=== PATIENT | male | born 2000 | race Caucasian/White ===

== ENCOUNTER 2020-09-17 20:19 | Emergency (ER) | payer BC ==
--- OUTSIDE RECORDS SUMMARY | 2020-09-17 20:21 | XMS REPORT | Continuity of Care Document ---
:2000 Author Organization [facility] t Address [address] [place] [address] Care Team Providers Name Role Phone Asked, Pcp Primary Care Physician Unavailable Truman Obrien MD Attending Clinician Payers Payer Name Policy Type Policy Effective Date Expiration Date Sour ce Number BCBSBCBS CHOICE [id number] 2018 [place] PPO/FEDERAL 00:00:00 Islam EMPL [id number] 2018-Presen tPPO Problems This patient has no known problems. Allergies, Adverse Reactions, Alerts This patient has no known allergies or adverse reactions. Family History Family Member Diagnosis Comments Start Date Stop Date Source Natural father Heart disease [place] [facility] Social History Social Habit Start Date Stop Date Quantity Comments Source Sex Assigned At M [facility] ethodist Tobacco use and 2020-06-29 2020-06-[address] [facility] ethodist exposure 00:00:00 00:00:00 Alcohol intake 2020-06-29 2020-06-29 Ex-drinker [facility] thodist 00:00:00 00:00:00 (finding) Smoking Status Start Date Stop Date Source Never smoker [facility] Medications Ordered Filled Start Stop Current Ordering Indication Dosage Frequency Signature Comments Components Source Medication Medication Date Date Medication? Clinician (SIG) Name Name meloxicam 2019-09- No Chondromala 15mg QD Take 1 [place] (Mobic) 15 12-08 david of tablet (15 Method[facility] mg tablet 00:00: 23:59 right mg total) s t 00 :00 patella by mouth daily for 60 days. To start after the Medrol Dose [place] methylPREDN 2019-09- No Chondromala 4mg Take 1 [place] ISolone 0-09 10-14 david of tablet (4 Meth izaiah (MEDROL 00:00: 23:59 right mg total) st DOSEPAK) 4 00 :00 patella by mouth mg tablet See Admin Instructio ns for 5 days. Use as directed by package instructio ns Vital Signs Vital Name Observation Time Observation Value Comments Source Body height 2020-06-29 09:02:00 177.8 cm Rome Lopez Body weight 2020-06-29 09:02:00 86.183 kg Rome Lopez BMI 2020-06-29 09:02:00 27.26 kg/m2 Rome Lopez Procedures Procedure Date / Time Performed Performing Clinician Sourc e XR KNEE 3 VW BILATERAL 2020-06-29 09:10:49 Oumar Obrien Plan of Care Planned Activity Planned Date Details Comments Source Future Scheduled 2020-04-21 INFLUENZA VACCINE Dmitry moran Islam Test 00:00:00 [code = INFLUENZA VACCINE] Future Scheduled 2014 COVID-19 VACCINE [place] Islam Test 00:00:00 (#1) [code = COVID-19 VACCINE (#1)] Encounters Start End Encounter Admission Attending Care Care Encounter Source Date/Time Date/Time Type Type Clinicians Facility Department ID 2020-06-29 2020-06-29 Outpatient [facility] [id number] [address] [place] 00:00:00 00:00:00 OUMAR [address] 2020-06-29 2020-06-29 Outpatient [facility] [id number] [address] [place] 00:00:00 00:00:00 [address] [facility] Results This patient has no known results.
--- OUTSIDE RECORDS SUMMARY | 2020-09-17 20:21 | XMS REPORT | Clinical Summary ---
:2000 Author Organization [facility] Address [address] [place] [address] Care Team Providers Name Role Phone Asked, Pcp Primary Care Provider Unavailable Allergies No Known Active Allergies Medications Medication Sig Dispensed Refills Start Date End Date Status meloxicam (Mobic) 15 mg Take 1 tablet (15 30 tablet 0 06/29/20 20 tabletIndications: mg total) by 0 Chondromalacia of left mouth daily for patella, Chondromalacia 60 days. To start of right patella after the Medrol Dose [place] methylPREDNISolone Take 1 tablet (4 21 tablet 0 06/29/2020 (MEDROL DOSEPAK) 4 mg mg total) by 0 tabletIndications: mouth See Admin Chondromalacia of left Instructions for patella, Chondromalacia 5 days. Use as of right patella directed by package instructions Active Problems No known active problems Encounters Date Type Specialty Care Team Description 06/29/2020 Office Visit Orthopedic Surgery Oumar Obrien Chon dromalacia of left patella (Primary Dx); Acute pain of b oth knees; Chondromalacia of right patella 06/29/2020 Travel 06/25/2020 Travel after 09/17/2019 Family History Medical History Relation Name Comments Heart disease Father Dad Relation Name Status Comments Father Dad Alive Mother Alive Social History Tobacco Use Types Packs/Day Years Used Date Never Smoker 0 0 Smokeless Tobacco: Never Used Alcohol Use Drinks/Week oz/Week Comments Not Currently 0 Glasses of wine 0.0 0 Cans of beer 0 Shots of liquor 0 Standard drinks or equivalent Sex Assigned at Date Recorded Male 06/28/2020 5:43 PM CDT Last Filed Vital Signs Vital Sign Reading Time Taken Comments Blood Pressure - - Pulse - - Temperature - - Respiratory Rate - - Oxygen Saturation - - Inhaled Oxygen Concentration - - Weight 86.2 kg (190 lb) 06/29/2020 9:02 AM CDT Height 177.8 cm (5' 10") 06/29/2020 9:02 AM CDT Body Mass Index 27.26 06/29/2020 9:02 AM CDT Plan of Treatment Health Maintenance Due Date Last Done Comments COVID-19 VACCINE (#1) 2014 INFLUENZA VACCINE 04/21/2020 Procedures Procedure Name Priority Date/Time Associated Diagnosis Comme nts XR KNEE 3 VW Routine 06/29/2020 9:10 AM Acute pain of both Re sults for this BILATERAL CDT knees procedure are i n the results section. after 09/17/2019 Results XR Knee 3 Vw Bilateral (06/29/2020 9:10 AM CDT) Specimen Narrative Performed At This result has an attachment that is no t available. 3 views of bilateral knees reveal no acute fracture or dislocation. [facility] Overall alignment and joint spaces are well-maintained . 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
[2020-09-18 00:39] LABS: Basophils % 0.5 % (0-1.3); Hematocrit 42.4 % (39.6-49.0); Lymphocytes % 49.9 % (15.3-44.8); MPV 9.2 fL (7.6-11.3); RBC Red Blood Cell Count 4.77 M/uL (4.33-5.43)
[2020-09-18 00:42] LABS: Protime INR 0.93
[2020-09-18 00:48] LABS: Barbiturates NEGATIVE (NEGATIVE); Benzodiazepines NEGATIVE (NEGATIVE); Cocaine NEGATIVE (NEGATIVE); METHAMPHETAM NEGATIVE (NEGATIVE); Methadone NEGATIVE (NEGATIVE); Opiates NEGATIVE (NEGATIVE); Phencyclidine NEGATIVE (NEGATIVE); THC Cannibis NEGATIVE (NEGATIVE)
[2020-09-18 01:03] LABS: ALT/SGPT 38 U/L (12-78); AST/SGOT 22 U/L (15-37); Albumin 4.4 g/dL (3.4-5.0); Alkaline Phosphatase 87 U/L (45-117); BUN Blood Urea Nitrogen 13 mg/dL (7-18); Bicarbonate 30 mmol/L (21-32); Bilirubin Direct 0.2 mg/dL (0-0.2); Bilirubin Total 0.6 mg/dL (0.2-1.0); Glucose Level 90 mg/dL (74-106); Magnesium 2.6 mg/dL (1.8-2.4); Potassium 3.7 mmol/L (3.5-5.1); Protein, Total 7.6 g/dL (6.4-8.2); Sodium Level 142 mmol/L (136-145); Troponin (Emerg Dept Use Only) < 0.02 ng/mL (0.0-0.045)
[2020-09-18 01:10] LABS: Urine Blood NEGATIVE (NEG); Urine Glucose NEGATIVE (NEG); Urine Protein NEGATIVE (NEG); Urine pH 6.5 (5.0-7.0)
--- NOTE | 2020-09-18 01:10 | EDPHYS ---
Physician Documentation [facility] Name: Austin Campbell Age: 20 yrs Sex: Male : 2000 Arrival Date: 09/17/2020 Time: 20:20 Bed 4 Private MD: ED Physician Saleem Bhatia HPI: 09/17 23:55 This 20 yrs old Male presents to ER via Ambulatory with complaints of Chest cp Pain. 23:55 The patient or guardian reports chest pain that is located primarily in the anterior cp chest wall, left. 23:55 The pain radiates to the left arm. cp 23:55 Associated signs and symptoms: Pertinent positives: palpitations, shortness of breath, cp Pertinent negatives: abdominal pain, diaphoresis, dizziness, lower extremity pain, lower extremity swelling, syncope. The chest pain is described as burning. Duration: The patient or guardian reports a single episode, markedly improved. Modifying factors: the symptoms are aggravated by nothing. Historical: - Allergies: 20:32 No Known Allergies; ll1 - PMHx: 20:32 Hypertension; ll1 - PSHx: 20:32 None; ll1 - Immunization history:: Flu vaccine is up to date. - Social history:: Smoking status: Patient denies any tobacco usage or history of. ROS: 09/18 00:00 Constitutional: Negative for body aches, chills, fever, poor PO intake. cp 00:00 Eyes: Negative for injury, pain, redness, and discharge. cp 00:00 ENT: Negative for ear pain, sore throat, difficulty swallowing, difficulty handling secretions. 00:00 Cardiovascular: Positive for chest pain, palpitations, Negative for edema. 00:00 Respiratory: Positive for shortness of breath, Negative for cough, wheezing. 00:00 Abdomen/GI: Negative for abdominal pain, nausea, vomiting, and diarrhea. 00:00 Back: Negative for radiated pain. 00:00 Neuro: Negative for altered mental status, headache, weakness. 00:00 All other systems are negative. Exam: 09/17 20:40 ECG was reviewed by the Attending Physician. cp 09/18 00:10 Constitutional: The patient appears in no acute distress, alert, awake, comfortable, cp non-diaphoretic, non-toxic, well developed, well nourished. 00:10 Head/Face: Normocephalic, atraumatic. cp 00:10 Eyes: Periorbital structures: appear normal, Conjunctiva: normal, no exudate, no injection, Sclera: no appreciated abnormality, Lids and lashes: appear normal, bilaterally. 00:10 ENT: External ear(s): are unremarkable, Nose: is normal, Mouth: Lips: moist, Oral mucosa: moist, Posterior pharynx: is normal, airway is patent, no erythema, no exudate. 00:10 Chest/axilla: Inspection: normal, Palpation: is normal, no crepitus, no tenderness. 00:10 Cardiovascular: Rate: normal, Rhythm: regular, Edema: is not appreciated, JVD: is not appreciated. 00:10 Respiratory: the patient does not display signs of respiratory distress, Respirations: normal, no use of accessory muscles, no retractions, labored breathing, is not present, Breath sounds: are clear throughout, no decreased breath sounds, no stridor, no wheezing. 00:10 Abdomen/GI: Inspection: abdomen appears normal, Palpation: abdomen is soft and non-tender, in all quadrants. 00:10 Back: pain, is absent, ROM is normal. 00:10 Skin: no rash present. 00:10 Neuro: Orientation: to person, place \T\ time. Mentation: is normal, Cerebellar function: is grossly normal, Motor: moves all fours, strength is normal, Sensation: is normal. Vital Signs: 09/17 20:28 BP 174 / 98; Pulse 67; Resp 17; Temp 98.6; Pulse Ox 100% on R/A; Weight 86.18 kg; ll1 Height 5 ft. 10 in. (177.80 cm); Pain 0/10; 23:56 BP 131 / 85; Pulse 75; Resp 19; Temp 98; Pulse Ox 99% ; rr5 09/18 01:00 BP 149 / 87; Pulse 70; Resp 19; Pulse Ox 98% ; rr5 01:33 BP 136 / 80; Pulse 70; Resp 16; Pulse Ox 98% ; rr5 09/17 20:28 Body Mass Index 27.26 (86.18 kg, 177.80 cm) ll1 MDM: 09/17 23:52 Patient medically screened. [facility] 09/18 01:05 Test interpretation: by ED physician or midlevel provider: ECG, chest xray negative for cp infiltrates. 01:08 Data reviewed: vital signs, nurses notes, lab test result(s), EKG, radiologic studies, cp plain films, and as a result, I will discharge patient. 01:08 Counseling: I had a detailed discussion with the patient and/or guardian regarding: the cp historical points, exam findings, and any diagnostic results supporting the discharge/admit diagnosis, lab results, radiology results, the need for outpatient follow up, a upscale security officer, to return to the emergency department if symptoms worsen or persist or if there are any questions or concerns that arise at home. Special discussion: Based on the patient's history, exam, and Dx evaluation, there is no indication for emergent intervention or inpatient Tx. It is understood by the patient/guardian that if the Sx's persist or worsen they need to return immediately for re-evaluation. 09/18 00:06 Order name: Basic Metabolic Panel; Complete Time: 01:06 09/18 01:06 Interpretation: Normal except: CL 108; CRE 1.33; GFR 67. 09/18 00:06 Order name: CBC with Diff; Complete Time: 01:03 09/18 01:03 Interpretation: Normal except: SARAH% 39.9; LYM% 49.9. 09/18 00:06 Order name: LFT's; Complete Time: 01:06 09/18 00:06 Order name: Magnesium; Complete Time: 01:06 09/18 01:06 Interpretation: Abnormal: MG 2.6. 09/18 00:06 Order name: PT-INR; Complete Time: 01:03 09/18 00:06 Order name: Troponin (emerg Dept Use Only); Complete Time: 01:06 09/18 01:07 Interpretation: TROPED < 0.02; Reviewed. 09/18 00:06 Order name: XRAY Chest (1 view) 09/18 00:06 Order name: EKG; Complete Time: 00:07 09/18 00:06 Order name: Cardiac monitoring; Complete Time: 00:08 09/18 00:06 Order name: EKG - Nurse/Tech; Complete Time: 00:08 09/18 00:06 Order name: IV Saline Lock; Complete Time: 01:01 09/18 00:06 Order name: UDS; Complete Time: 01:03 09/18 01:03 Interpretation: Reviewed. cp 09/18 00:06 Order name: D-Dimer; Complete Time: 01:03 cp 09/18 00:32 Order name: Urine Dipstick--Ancillary (enter results) sp 09/18 00:06 Order name: Labs collected and sent; Complete Time: 01:01 cp 09/18 00:06 Order name: O2 Per Protocol; Complete Time: 00:08 cp 09/18 00:06 Order name: O2 Sat Monitoring; Complete Time: 00:08 cp EC/28 20:40 Rate is 59 beats/min. Rhythm is regular. AR interval is normal. QRS interval is normal. cp QT interval is normal. T waves are Inverted in lead aVR. Interpreted by me. Reviewed by me. Administered Medications: No medications were administered Disposition: 09/18 07:25 Co-signature as Attending Physician, Saleem Bhatia MD I agree with the assessment and [facility] plan of care. Disposition: 09/18/20 01:09 Discharged to Home. Impression: Other chest pain, Palpitations. - Condition is Stable. - Discharge Instructions: Nonspecific Chest Pain, Palpitations. - Medication Reconciliation Form, Thank You Letter, Antibiotic Education, Prescription Opioid Use, Work release form form. - Follow up: Private Physician; When: 1 - 2 days; Reason: Recheck today's complaints. - Problem is new. - Symptoms have improved. Signatures: Dispatcher [employer] Saleem Le MD MD cha Page, Corey, PA PA cp Jaya Carrera RN RN rr5 Bridgette Puri RN RN ll1 Corrections: (The following items were deleted from the chart) 01:10 01:09 09/18/2020 01:09 Discharged to Home. Impression: Other chest pain. Condition is cp Stable. Forms are Medication Reconciliation Form, Thank You Letter, Antibiotic Education, Prescription Opioid Use. Follow up: Private Physician; When: 1 - 2 days; Reason: Recheck today's complaints. Problem is new. Symptoms have improved. cp 01:36 01:10 09/18/2020 01:09 Discharged to Home. Impression: Other chest pain; Palpitations. rr5 Condition is Stable. Discharge Instructions: Nonspecific Chest Pain, Palpitations. Forms are Medication Reconciliation Form, Thank You Letter, Antibiotic Education, Prescription Opioid Use. Follow up: Private Physician; When: 1 - 2 days; Reason: Recheck today's complaints. Problem is new. Symptoms have improved. cp
--- NOTE | 2020-09-18 01:10 | ER ---
Nurse's Notes [facility] Name: Austin Campbell Age: 20 yrs Sex: Male : 2000 Arrival Date: 09/17/2020 Time: 20:20 Bed 4 Private MD: Diagnosis: Other chest pain;Palpitations Presentation: 09/17 20:28 Chief complaint: Patient states: Reports palpitations for 1 day. Had 1 episode of SOB, ll1 so he came in. Coronavirus screen: Client denies travel out of the [place] in the last 14 days. At this time, the client does not indicate any symptoms associated with coronavirus-19. Ebola Screen: Patient denies travel to an Ebola-affected area in the 21 days before illness onset. Initial Sepsis Screen: Does the patient meet any 2 criteria? No. Patient's initial sepsis screen is negative. Does the patient have a suspected source of infection? No. Patient's initial sepsis screen is negative. Risk Assessment: Do you want to hurt yourself or someone else? Patient reports no desire to harm self or others. Onset of symptoms was September 17, 2020. 20:28 Method Of Arrival: Ambulatory ll1 20:28 Acuity: ART 3 ll1 Historical: - Allergies: 20:32 No Known Allergies; ll1 - PMHx: 20:32 Hypertension; ll1 - PSHx: 20:32 None; ll1 - Immunization history:: Flu vaccine is up to date. - Social history:: Smoking status: Patient denies any tobacco usage or history of. Screenin/29 00:00 Abuse screen: Denies threats or abuse. Denies injuries from another. Nutritional rr5 screening: No deficits noted. Tuberculosis screening: No symptoms or risk factors identified. Fall Risk Secondary diagnosis (15 points) Total Quinn Fall Scale indicates No Risk (0-24 pts). Assessment: 00:00 General: Appears in no apparent distress. comfortable, Behavior is calm, cooperative, rr5 appropriate for age. 00:00 Pain: Complains of pain in chest Pain Quality of pain is described as aching, Pain rr5 began gradually, Is intermittent. Neuro: Level of Consciousness is awake, alert, obeys commands, Oriented to person, place, time. Cardiovascular: Reports palpitations, Capillary refill < 3 seconds Patient's skin is warm and dry. Respiratory: Airway is patent Respiratory effort is even, unlabored, Respiratory pattern is regular, symmetrical. GI: No signs and/or symptoms were reported involving the gastrointestinal system. : No signs and/or symptoms were reported regarding the genitourinary system. EENT: No signs and/or symptoms were reported regarding the EENT system. Derm: Skin is intact, is healthy with good turgor, Skin temperature is warm. Musculoskeletal: Circulation, motion, and sensation intact. Capillary refill < 3 seconds. 01:00 Reassessment: Patient appears in no apparent distress at this time. Patient is alert, rr5 oriented x 3, equal unlabored respirations, skin warm/dry/pink. 01:32 Reassessment: Patient appears in no apparent distress at this time. Patient is alert, rr5 oriented x 3, equal unlabored respirations, skin warm/dry/pink. discharge instruction given and explained without complaints made. Vital Signs: 09/17 20:28 BP 174 / 98; Pulse 67; Resp 17; Temp 98.6; Pulse Ox 100% on R/A; Weight 86.18 kg; ll1 Height 5 ft. 10 in. (177.80 cm); Pain 0/10; 23:56 BP 131 / 85; Pulse 75; Resp 19; Temp 98; Pulse Ox 99% ; rr5 09/18 01:00 BP 149 / 87; Pulse 70; Resp 19; Pulse Ox 98% ; rr5 01:33 BP 136 / 80; Pulse 70; Resp 16; Pulse Ox 98% ; rr5 09/17 20:28 Body Mass Index 27.26 (86.18 kg, 177.80 cm) ll1 ED Course: 09/17 20:20 Patient arrived in ED. cl3 20:31 Triage completed. ll1 20:32 Arm band placed on. ll1 20:38 EKG completed in triage. Results shown to MD. ll1 23:43 Jaya Carrera, AJAY is Primary Nurse. rr5 23:44 Saleem Carney PA is PHCP. cp 23:44 Saleem Bhatia MD is Attending Physician. cp 09/18 00:00 Patient has correct armband on for positive identification. Bed in low position. Call rr5 light in reach. equipment monitor phototypesetting on. Pulse ox on. NIBP on. 00:00 No provider procedures requiring assistance completed. Patient maintains SpO2 rr5 saturation greater than 95% on room air. 00:15 Urine collected: clean catch specimen, clear. rr5 00:24 Inserted saline lock: 20 gauge in right forearm, using aseptic technique. Blood rr5 collected. 00:40 XRAY Chest (1 view) In Process Unspecified. EDMS 01:36 IV discontinued, intact, bleeding controlled, No redness/swelling at site. Pressure rr5 dressing applied. Administered Medications: No medications were administered Outcome: 01:09 Discharge ordered by . cp 01:36 Discharged to home ambulatory, with family. rr5 01:36 Condition: stable 01:36 Discharge instructions given to patient, Instructed on discharge instructions, follow up and referral plans. Demonstrated understanding of instructions, follow-up care. 01:36 Patient left the ED. rr5 Signatures: Dispatcher [employer] EDMS Saleem Carney PA PA cp Roque, Raymond RN RN rr5 Hazel Puri cl3 Bridgette Puri RN RN ll1 Corrections: (The following items were deleted from the chart) 01:36 00:00 IV discontinued, intact, bleeding controlled, No redness/swelling at site. rr5 Pressure dressing applied, rr5
[2020-09-18 01:57] VITALS: TEMP 98
[2020-09-18 01:58] VITALS: O2SAT 98
[2020-09-18 02:00] VITALS: BP 136/80
--- NOTE | 2020-09-18 08:58 | RAD REPORT ---
EXAM DESCRIPTION: RAD - Chest Single View - 09/18/2020 12:40 am CLINICAL HISTORY: PALPITATIONS COMPARISON: None TECHNIQUE: AP portable chest image was obtained 09/18/2020 12:40 am . FINDINGS: Lungs are clear. Heart and vasculature are normal. No measurable pleural effusion and no p neumothorax. No acute bony abnormality seen. No acute aortic findings suspected. IMPRESSION: No acute cardiopulmonary process.
--- NOTE | 2020-09-18 16:07 | EKG ---
Test Date: 2020-09-17 Test Time: 20:34:58 Talent Acquisition Operations Manager: MILLIE MEASUREMENT RESULTS: Intervals: Rate: 59 AK: 152 QRSD: 90 QT: 390 QTc: 386 [place]: P: 66 AK: 152 QRS: 68 T: 33 INTERPRETIVE STATEMENTS: Sinus bradycardia with sinus arrhythmia Otherwise normal ECG No previous ECG available for comparison Electronically Signed On 09-18-20 16:05:31 ETHANOL QUALITY LEADER by Malvin Bass
== END 2020-09-18 01:36 | disposition home or self-care (01) ==
LOC: ER 20:19
DX: R00.2 Palpitations (principal); I10 Essential (primary) hypertension
CPT/HCPCS: 36415; 71045; 80048; 80076; 80307; 81003; 83735; 84484; 85025; 85379; 85610; 93005; 99285

== ENCOUNTER 2022-02-15 23:20 | Emergency (ER) | payer BC ==
--- OUTSIDE RECORDS SUMMARY | 2022-02-15 23:22 | XMS REPORT | Continuity of Care Document ---
:2000 Author Organization [facility] Address [address] [place] [address] Dr. Conn [address] [place] [id number] Care Team Providers Name Role Phone MARK Attending Clinician Unavailable Gaudencio Lopez Attending Clinician [phone] WANDA Attending Clinician Unavailable CAESAR Attending Clinician Unavailable MARK Admitting Clinician Unavailable Payers Payer Name Policy Type Policy Number Effective Date Expiration Date S z[id number] 2018 00:00:00 [place] Problems This patient has no known problems. Allergies, Adverse Reactions, Alerts This patient has no known allergies or adverse reactions. Medications This patient has no known medications. Procedures This patient has no known procedures. Encounters Start End Encounter Admission Attending Care Care Encounter Source Date/Time Date/Time Type Type Clinicians Facility Department ID 2021-09-11 2021-09-11 Outpatient [facility] [id number] [place] 05:53:00 05:53:00 [facility] 2021-06-13 2021-06-13 Outpatient [facility] [id number] [place] 01:41:00 01:41:00 [facility] 2021-05-09 2021-05-09 Outpatient [facility] [id number] [place] 01:32:00 01:32:00 [facility] 2021-04-19 2021-04-19 Outpatient [facility] [id number] [place] 09:10:00 09:10:00 [facility]30 [facility] 2021-04-18 2021-04-18 Outpatient [facility] [id number] [place] 10:32:00 10:32:00 [facility] 2021-04-18 2021-04-18 Outpatient John [facility] [id number] 00:00:00 00:00:00 [place] [id number] Gaudencio [id number] 2020-12-20 2020-12-20 Outpatient [facility] [id number] [place] 01:03:00 01:03:00 [facility] 2020-12-07 2020-12-07 Outpatient DARLIN MUÑOZ [facility] [id number] [place] 00:00:00 00:00:[address] 2020-12-07 2020-12-07 Outpatient DARLIN MUÑOZ [facility] [id number] [place] 00:00:00 00:00:[address] 2020-11-15 2020-11-15 Outpatient [facility] [id number] [place] 01:01:00 01:01:00 [facility] 2020-10-25 2020-10-25 Outpatient [facility] [id number] [place] 12:07:00 12:07:00 [facility] 2020-10-22 2020-10-22 Outpatient [facility] [id number] [place] 11:53:00 11:53:00 [facility] 2020-10-22 2020-10-22 Outpatient John [facility] [id number] 00:00:00 00:00:00 [place] [id number] Gaudencio [id number] 2020-10-22 2020-10-22 Outpatient John [facility] [id number] 00:00:00 00:00:00 [place] [id number] Gaudencio [id number] 2020-10-18 2020-10-18 Outpatient [facility] [id number] [place] 12:33:00 12:33:00 [facility] 2020-10-18 2020-10-18 Outpatient John, [facility] [id number] 00:00:00 00:00:00 [place] [id number] Gaudencio [id number] 2020-09-30 2020-09-30 Outpatient [facility] [id number] [place] 01:02:00 01:02:00 [facility] 2020-09-20 2020-09-20 Outpatient [facility] [id number] [place] 12:53:00 12:53:00 104 [facility] 2020-09-20 2020-09-20 Outpatient [facility] [id number] [place] 12:53:00 12:53:00 231 [facility] 2020-09-18 2020-09-18 Outpatient [facility] [id number] [place] 04:31:00 04:31:00 229 [facility] 2020-09-17 2020-09-17 Outpatient [facility] [id number] [place] 06:16:00 06:16:00 228 [facility] 2020-09-11 2020-09-11 Outpatient [facility] [id number] [place] 03:52:00 03:52:00 [facility] 2020-09-05 2020-09-05 Outpatient [facility] [id number] [place] 02:01:00 02:01:00 [facility] 2020-06-29 2020-06-29 Outpatient CAESAR [facility] [id number] [address] [place] [address] 00:00:00 00:00:00 VERONIKA [id number] [facility] 2020-06-29 2020-06-29 Outpatient CAESAR [facility] [id number] [place] 00:00:00 00:00:00 VERONIKA [facility] Results This patient has no known results.
[2022-02-15] MEDS ORDERED: NA CHLORIDE 0.9% 1,000 ML ONE (23:58)
[2022-02-16 00:05] LABS: Absolute Lymphocytes (CBC) 1.4 K/uL (0.7-4.9); Hematocrit 43.2 % (39.6-49.0); Lymphocytes % 15.7 % (15.3-44.8); MPV 8.8 fL (7.6-11.3); RBC Red Blood Cell Count 4.93 M/uL (4.33-5.43)
[2022-02-16 00:22] LABS: Potassium 3.5 mmol/L (3.5-5.1)
--- NOTE | 2022-02-16 01:56 | ER ---
Nurse's Notes [facility] Name: Austin Campbell Age: 21 yrs Sex: Male : 2000 Arrival Date: 02/15/2022 Time: 23:24 Bed 6 Private MD: Diagnosis: Syncope Presentation: 02/15 23:30 Chief complaint: Patient states: I started having vertigo symptoms on Thursday. Tonight I eric was at the table and put my head down on the table, I sat up and they said I passed out and hit my head on the concrete floor. Coronavirus screen: At this time, the client does not indicate any symptoms associated with coronavirus-19. Ebola Screen: No symptoms or risks identified at this time. Initial Sepsis Screen: Does the patient meet any 2 criteria? No. Patient's initial sepsis screen is negative. Does the patient have a suspected source of infection? No. Patient's initial sepsis screen is negative. Risk Assessment: Do you want to hurt yourself or someone else? Patient reports no desire to harm self or others. Onset of symptoms was February 15, 2022. Transition of care: patient was not received from another setting of care. 23:30 Method Of Arrival: Ambulatory 4 23:30 Acuity: ART 3 [facility] 23:30 Care prior to arrival: None. 4 23:30 Mechanism of Injury: Fall out of chair. Trauma event details: Injury occurred in the [address] Trauma Activation: Alert Physician: ED Physician; Name: Kennedy; Notified At: 23:40; Arrived At: 23:40 Physician: General Surgeon; Name: ; Notified At: 23:40; Arrived At: Physician: Radiology; Name: ; Notified At: 23:40; Arrived At: Physician: Respiratory; Name: ; Notified At: 23:40; Arrived At: Physician: Lab; Name: ; Notified At: 23:40; Arrived At: Historical: - Allergies: 23:30 NICOTINE; jb4 - Home Meds: 23:30 amlodipine oral [Active]; jb4 - PMHx: 23:30 Hypertension; jb4 - PSHx: 23:30 None; jb4 - Immunization history:: Adult Immunizations up to date. - Social history:: Smoking status: Patient denies any tobacco usage or history of. Patient uses alcohol, occasionally. - Immunization history: Last tetanus immunization: unknown. - Family history:: not pertinent. - Hospitalizations: : No recent hospitalization is reported. Screenin:30 Abuse screen: Denies threats or abuse. Nutritional screening: No deficits noted. jb4 Tuberculosis screening: No symptoms or risk factors identified. 02/16 02:00 Fall Risk None identified. jb4 Primary Survey: 02/15 23:30 NO uncontrolled hemorrhage observed. A: The client is awake and alert. The airway is jb4 patent. Breathing/Chest: Spontaneous respiratory effort, equal unlabored respirations, breath sounds clear bilaterally, regular pattern, symmetrical chest rise and fall. Circulation: No external hemorrhage present. Regular and strong central pulse, skin warm/dry/normal color. Disability Pupils are equal, round, reactive to light and accommodation. Client is alert. Exposure/Environment: All clothing and personal items were removed. Forensic evidence collection is not deemed to be indicated at this time. Items placed in patient belonging bag. 02/16 00:30 Reassessment Alertness and Airway: Awake and alert. The airway is patent. Breathing: jb4 Spontaneous respiratory effort, equal unlabored respirations, breath sounds clear bilaterally, regular pattern with symmetrical chest rise and fall. Circulation: No external hemorrhage noted. Regular and strong central pulse, skin warm/dry/normal color. Disability: Pupils Pupils are equal, round, reactive to light and accomodation. Alert. Assessment: 02/15 23:30 General: Appears in no apparent distress. comfortable, Behavior is calm, cooperative, jb4 appropriate for age. Pain: Denies pain. Neuro: Fraser Agitation-Sedation Scale (RASS): 0 - Alert and Calm Level of Consciousness is awake, alert, obeys commands, Oriented to person, place, time, situation. EENT: No signs and/or symptoms were reported regarding the EENT system. Cardiovascular: Patient's skin is warm and dry. Respiratory: Airway is patent Respiratory effort is even, unlabored, Respiratory pattern is regular, symmetrical. GI: No signs and/or symptoms were reported involving the gastrointestinal system. : No signs and/or symptoms were reported regarding the genitourinary system. Derm: Skin is intact, Skin is pink, warm \T\ dry. Musculoskeletal: Circulation, motion, and sensation intact. Range of motion: intact in all extremities. 02/16 00:30 Reassessment: Patient appears in no apparent distress at this time. Patient and/or jb4 family updated on plan of care and expected duration. Pain level reassessed. Patient is alert, oriented x 3, equal unlabored respirations, skin warm/dry/pink. 01:30 Reassessment: Patient appears in no apparent distress at this time. Patient and/or jb4 family updated on plan of care and expected duration. Pain level reassessed. Patient is alert, oriented x 3, equal unlabored respirations, skin warm/dry/pink. 02:00 Reassessment: Patient appears in no apparent distress at this time. Patient and/or jb4 family updated on plan of care and expected duration. Pain level reassessed. Patient is alert, oriented x 3, equal unlabored respirations, skin warm/dry/pink. Vital Signs: 02/15 23:30 BP 139 / 92; Pulse 66; Resp 16; Temp 98.1(TE); Pulse Ox 99% on R/A; Pain 0/10; jb4 02/16 00:30 BP 121 / 68; Pulse 63; Resp 16; Pulse Ox 100% on R/A; jb4 01:30 BP 124 / 66; Pulse 54; Resp 16; Pulse Ox 99% on R/A; jb4 Tash Coma Score: 02/15 23:30 Eye Response: spontaneous(4). Verbal Response: oriented(5). Motor Response: obeys jb4 commands(6). Total: 15. 02/16 00:30 Eye Response: spontaneous(4). Verbal Response: oriented(5). Motor Response: obeys jb4 commands(6). Total: 15. 01:30 Eye Response: spontaneous(4). Verbal Response: oriented(5). Motor Response: obeys jb4 commands(6). Total: 15. Trauma Score (Adult): 02/15 23:30 Eye Response: spontaneous(1); Verbal Response: oriented(1); Motor Response: obeys jb4 commands(2); Systolic BP: > 89 mm Hg(4); Respiratory Rate: 10 to 29 per min(4); Tash Score: 15; Trauma Score: 12 02/16 00:30 Eye Response: spontaneous(1); Verbal Response: oriented(1); Motor Response: obeys jb4 commands(2); Systolic BP: > 89 mm Hg(4); Respiratory Rate: 10 to 29 per min(4); Winfield Score: 15; Trauma Score: 12 01:30 Eye Response: spontaneous(1); Verbal Response: oriented(1); Motor Response: obeys jb4 commands(2); Systolic BP: > 89 mm Hg(4); Respiratory Rate: 10 to 29 per min(4); Tash Score: 15; Trauma Score: 12 ED Course: 02/15 23:24 Patient arrived in ED. bp1 23:26 Cornelio Benavides MD is Attending Physician. rn 23:30 Arm band placed on. jb4 23:30 Patient has correct armband on for positive identification. Bed in low position. Call jb4 light in reach. Side rails up X 1. 23:30 Patient maintains SpO2 saturation greater than 95% on room air. Thermoregulation: warm jb4 blanket given to patient. 23:40 Austin Zeng, RN is Primary Nurse. jb4 23:46 Triage completed. jb4 23:59 Initial lab(s) drawn, by mt, sent to lab. Inserted saline lock: 18 gauge in right jb4 antecubital area, using aseptic technique. Blood collected. 02/16 00:49 CT Head C Spine In Process Unspecified. EDMS 02:00 No provider procedures requiring assistance completed. IV discontinued, intact, jb4 bleeding controlled, No redness/swelling at site. Pressure dressing applied. Administered Medications: 02/15 23:59 Drug: NS 0.9% 1000 ml Route: IV; Rate: 1000 ml; Site: right antecubital; jb4 Medication: 02/16 02:00 VIS not applicable for this client. jb4 Outcome: 01:55 Discharge ordered by . rn 02:00 Discharged to home ambulatory, with family. jb4 02:00 Condition: stable 02:00 Discharge instructions given to patient, Instructed on discharge instructions, follow up and referral plans. Demonstrated understanding of instructions, follow-up care. 02:23 Patient's length of stay in the Emergency Department was greater than 2 hours. jb4 02:23 Patient left the ED. jb4 Signatures: Dispatcher [employer] EDAK Cornelio Benavides MD MD rn Bryson, James, RN RN jb4 Shamika Agarwal bp1
--- NOTE | 2022-02-16 01:56 | EDPHYS ---
Physician Documentation [facility] Name: Austin Campbell Age: 21 yrs Sex: Male : 2000 Arrival Date: 02/15/2022 Time: 23:24 Bed 6 Private MD: ED Physician Cornelio Benavides HPI: 02/16 01:02 This 21 yrs old Male presents to ER via Ambulatory with complaints of syncope. rn 01:02 The patient has experienced syncope. Onset: The symptoms/episode began/occurred just rn prior to arrival. Duration: This was a single episode. Associated injury: Head/face: Neck:. Associated signs and symptoms: Pertinent positives: headache, Pertinent negatives: abdominal pain, chest pain, diaphoresis, palpitations, seizure, shortness of breath, weakness. Current symptoms: headache. The patient has not experienced similar symptoms in the past. The patient has not recently seen a physician. Pt reports was swimming or in pool tonight, got out, eating pizza, felt lightheaded and like was going to pass out, put head on table, passed out, fell to ground and hit head on concrete. Has HTN, just had ECHO and holter monitor this past year. Woke up within 10 sec of falling, and felt fine immediately, no report by bystander of seizure activity while on ground or post-ictal period. Currently feels well, and ambulatory to room. No famhx of early sudden . . Historical: - Allergies: 02/15 23:30 NICOTINE; jb4 - Home Meds: 23:30 amlodipine oral [Active]; jb4 - PMHx: 23:30 Hypertension; jb4 - PSHx: 23:30 None; jb4 - Immunization history:: Adult Immunizations up to date. - Social history:: Smoking status: Patient denies any tobacco usage or history of. Patient uses alcohol, occasionally. - Immunization history: Last tetanus immunization: unknown. - Family history:: not pertinent. - Hospitalizations: : No recent hospitalization is reported. ROS: 02/16 01:02 Constitutional: Negative for fever, chills, and weight loss, Eyes: Negative for injury, rn pain, redness, and discharge, ENT: Negative for injury, pain, and discharge, Neck: Negative for injury, pain, and swelling, Cardiovascular: Negative for chest pain, palpitations, and edema, Respiratory: Negative for shortness of breath, cough, wheezing, and pleuritic chest pain, Abdomen/GI: Negative for abdominal pain, nausea, vomiting, diarrhea, and constipation, Back: Negative for injury and pain, : Negative for injury, bleeding, discharge, and swelling, MS/Extremity: Negative for injury and deformity, Skin: Negative for injury, rash, and discoloration, Neuro: Negative for numbness, tingling, and seizure. Exam: 01:02 Constitutional: This is a well developed, well nourished patient who is awake, alert, rn and in no acute distress. Laying reclined, legs crossed, arm behind his head, relaxed. Head/Face: Normocephalic, atraumatic. Eyes: Pupils equal round and reactive to light, extra-ocular motions intact. Periorbital areas with no swelling, redness, or edema. ENT: dry MM Neck: Mild cervical tenderness without focal bony tenderness. Cardiovascular: Regular rate and rhythm. No pulse deficits. Respiratory: No increased work of breathing, no retractions or nasal flaring. Abdomen/GI: Soft, non-tender Skin: Warm, dry MS/ Extremity: Pulses equal, no cyanosis. Neurovascular intact. Full, normal range of motion. Equal circumference. Neuro: Awake and alert, GCS 15, oriented to person, place, time, and situation. Cranial nerves II-XII grossly intact. Motor strength 5/5 in all extremities. Sensory grossly intact. Cerebellar exam normal. 01:53 ECG was reviewed by the Attending Physician. rn Vital Signs: 02/15 23:30 BP 139 / 92; Pulse 66; Resp 16; Temp 98.1(TE); Pulse Ox 99% on R/A; Pain 0/10; jb4 02/16 00:30 BP 121 / 68; Pulse 63; Resp 16; Pulse Ox 100% on R/A; jb4 01:30 BP 124 / 66; Pulse 54; Resp 16; Pulse Ox 99% on R/A; jb4 Venus Coma Score: 02/15 23:30 Eye Response: spontaneous(4). Verbal Response: oriented(5). Motor Response: obeys jb4 commands(6). Total: 15. 02/16 00:30 Eye Response: spontaneous(4). Verbal Response: oriented(5). Motor Response: obeys jb4 commands(6). Total: 15. 01:30 Eye Response: spontaneous(4). Verbal Response: oriented(5). Motor Response: obeys jb4 commands(6). Total: 15. Trauma Score (Adult): 02/15 23:30 Eye Response: spontaneous(1); Verbal Response: oriented(1); Motor Response: obeys jb4 commands(2); Systolic BP: > 89 mm Hg(4); Respiratory Rate: 10 to 29 per min(4); Tash Score: 15; Trauma Score: 12 02/16 00:30 Eye Response: spontaneous(1); Verbal Response: oriented(1); Motor Response: obeys jb4 commands(2); Systolic BP: > 89 mm Hg(4); Respiratory Rate: 10 to 29 per min(4); Venus Score: 15; Trauma Score: 12 01:30 Eye Response: spontaneous(1); Verbal Response: oriented(1); Motor Response: obeys jb4 commands(2); Systolic BP: > 89 mm Hg(4); Respiratory Rate: 10 to 29 per min(4); Tash Score: 15; Trauma Score: 12 MDM: 02/15 23:26 Patient medically screened. rn 02/16 01:53 Differential Diagnosis: cardiac arrhythmia, idiopathic syncope, vasovagal episode, rn dehydration. Data reviewed: vital signs, nurses notes, lab test result(s), EKG, radiologic studies, and as a result, I will discharge patient. Counseling: I had a detailed discussion with the patient and/or guardian regarding: the historical points, exam findings, and any diagnostic results supporting the discharge/admit diagnosis, lab results, radiology results, the need for outpatient follow up, to return to the emergency department if symptoms worsen or persist or if there are any questions or concerns that arise at home. Response to treatment: the patient's condition has returned to base line, the patient is now symptom free, and as a result, I will discharge patient. Special discussion: I discussed with the patient/guardian in detail that at this point there is no indication for admission to the hospital. It is understood, however, that if the symptoms persist or worsen the patient needs to return immediately for re-evaluation. Based on the history and exam findings, there is no indication for further emergent testing or inpatient evaluation. I discussed with the patient/guardian the need to see the vocational training director for further evaluation of the symptoms. I discussed with the patient/guardian the need to see the primary care provider for further evaluation of the symptoms. 02/15 23:48 Order name: Basic Metabolic Panel; Complete Time: 01:02 rn 02/15 23:48 Order name: CBC with Diff; Complete Time: 01:02 rn 02/15 23:48 Order name: Magnesium; Complete Time: 01:02 rn 02/15 23:48 Order name: NT PRO-BNP; Complete Time: 01:02 rn 02/15 23:48 Order name: Troponin HS; Complete Time: 01:02 rn 02/15 23:48 Order name: XRAY Chest (1 view) rn 02/15 23:48 Order name: EKG; Complete Time: 23:49 rn 02/15 23:48 Order name: Cardiac monitoring; Complete Time: 23:59 rn 02/15 23:48 Order name: EKG - Nurse/Tech; Complete Time: 00:47 rn 02/15 23:48 Order name: IV Saline Lock; Complete Time: 23:59 rn 02/15 23:48 Order name: Labs collected and sent; Complete Time: 23:58 rn 02/15 23:48 Order name: O2 Per Protocol; Complete Time: 23:58 rn 02/15 23:48 Order name: CT Head C Spine rn 02/15 23:48 Order name: O2 Sat Monitoring; Complete Time: 23:58 rn EC:53 Rate is 53 beats/min. Rhythm is regular. QRS [place] is Normal. [place] interval is normal. QRS rn interval is normal. QT interval is normal. No Q waves. T waves are Normal. Clinical impression: Sinus bradycardia. Interpreted by me. Reviewed by me. 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
[2022-02-16 02:57] VITALS: TEMP 98.1
[2022-02-16 03:01] VITALS: BP 124/66; O2SAT 99
--- NOTE | 2022-02-17 17:23 | RAD REPORT ---
EXAM DESCRIPTION: Head C Spine Mpr Wo Con CLINICAL HISTORY: 21 years Male trauma, fall after syncope, hit on concrete TECHNIQUE: Noncontrast CT head and cervical spine with coronal and sagittal reformats. All CT scans at this facility use dose modulation, iterative reconstruction, and/or weight based dosing when appro priate to reduce radiation dose to as low as reasonably achievable. COMPARISON: None. FINDINGS: HEAD: Brain: Normal in morphology and attenuation. No intracranial hemorrhage, midline shift, mass or mass effect. No obvious large acute territorial infarction. Ventricles: No hydrocephalus. Orbits: Unremarkable. Sinus: Visualized portions are clear. Mastoid: clear Osseous: Unremarkable. Soft tissues: Unremarkable. CERVICAL SPINE: Vertebra: No acute fracture. Canal: No high grade spinal canal stenosis. Alignment: Straightening of the normal cervical lordosis without spondylolisthesis. Soft tissues: Unremarkable. Lungs: Visualized lung apices are clear. IMPRESSION: Head: 1. No acute intracranial findings. Cervical spine: 1. No acute cervical spine pathology. Electronically signed by: Sam Caldwell MD 02/16/2022 1:49 AM CDT Due to temporary technical issues with the PACS/Fluency reporting system, reports are being signed by the in house radiologists without review as a courtesy to insure prompt reporting. The interpreting radiologist is fully responsible for the content of the report.
--- NOTE | 2022-02-18 12:23 | EKG ---
Test Date: 2022-02-16 Test Time: 00:03:03 [employer] Contact Printer: CURT MEASUREMENT RESULTS: Intervals: Rate: 53 ME: 174 QRSD: 102 QT: 430 QTc: 403 [place]ogg: P: 44 ME: 174 QRS: 71 T: 23 INTERPRETIVE STATEMENTS: Sinus bradycardia with sinus arrhythmia Cannot rule out Inferior infarct, age undetermined Abnormal ECG Compared to ECG 09/17/2020 20:34:58 Myocardial infarct finding now present Electronically Signed On 02-18-22 12:17:16 CDT by Malvin Bass
== END 2022-02-16 02:23 | disposition home or self-care (01) ==
LOC: ER 23:20
DX: R55 Syncope and collapse (principal); R51.9 Headache, unspecified; I10 Essential (primary) hypertension; Z91.048 Other nonmedicinal substance allergy status
CPT/HCPCS: 93005; 85025; 80048; 36415; 83735; 84484; 83880; 70450; 72125; 99284; J7030